=== PATIENT | female | born 1995 ===

== ENCOUNTER 2016-12-06 07:39 | Emergency (ER) | payer OTHER ==
[2016-12-06 08:11] VITALS: BMI 21.9
--- NOTE | 2016-12-06 08:53 | ED PDOC ---
Arrival/HPI - General Chief Complaint: Abnormal Skin Integrity Time Seen by Provider: 12/06/16 08:13 Historian: Patient - History of Present Illness Narrative History of Present Illness (Text): 12/06/16 08:17 A 21 year old female, whose past medical history includes asthma, presents to the emergency department with multiple complaints. Patient complains of pain to the left shoulder radiating up the left neck which developed 4 days ago. She notes yesterday at the site of the pain she developed a rash which is itchy and painful. Patient denies any trauma or use of new products, such as perfume, creams, soap, etc. Patient also complains of lower abdominal pain that began yesterday. Pain is sharp in nature and associated with nausea. She denies any fever, vomiting, diarrhea, urinary symptoms, vaginal bleeding, recent travel, recent weight lose , family history of cancer or any other complaints at this time. PMD: None Past Medical History - Provider Review Nursing Documentation Reviewed: Yes - Psychiatric Hx Substance Use: No Family/Social History - Physician Review Nursing Documentation Reviewed: Yes Family/Social History: Unknown Family HX Smoking Status: Never Smoked Hx Alcohol Use: Yes Frequency of alcohol use: Socially Hx Substance Use: No Allergies/Home Meds Allergies/Adverse Reactions: Allergies No Known Allergies Allergy (Verified 12/06/16 08:10) Review of Systems - Physician Review All systems were reviewed & negative as marked: Yes - Review of Systems Constitutional: absent: Fevers Cardiovascular: absent: Chest Pain Gastrointestinal: Abdominal Pain, Nausea. absent: Diarrhea, Vomiting Genitourinary Female: absent: Dysuria, Frequency, Hematuria, Urine Output Changes, Vaginal Bleeding Musculoskeletal: Neck Pain, Other (left shoulder pain) Skin: Rash Physical Exam Vital Signs Reviewed: Yes Vital Signs Temp Pulse Resp BP Pulse Ox 12/06/16 11:45 98 F 64 18 110/67 98 12/06/16 10:00 97.9 F 60 16 101/66 99 12/06/16 08:04 98.4 F 63 18 108/64 98 Temperature: Afebrile Blood Pressure: Normal Pulse: Regular Respiratory Rate: Normal Appearance: Positive for: Well-Appearing, Non-Toxic, Comfortable Pain Distress: None Mental Status: Positive for: Alert and Oriented X 3 - Systems Exam Head: Present: Atraumatic, Normocephalic Pupils: Present: PERRL Extroacular Muscles: Present: EOMI Conjunctiva: Present: Normal Mouth: Present: Moist Mucous Membranes Neck: Present: Normal Range of Motion Respiratory/Chest: Present: Clear to Auscultation, Good Air Exchange. No: Respiratory Distress, Accessory Muscle Use Cardiovascular: Present: Regular Rate and Rhythm, Normal S1, S2. No: Murmurs Abdomen: Present: Tenderness (right suprapubic tenderness with palpation), Normal Bowel Sounds, Guarding. No: Distention, Peritoneal Signs, Rebound Upper Extremity: Present: Other (pain with movement of left arm). No: Cyanosis , Edema Lower Extremity: Present: Normal Inspection. No: Edema Neurological: Present: GCS=15, CN II-XII Intact, Speech Normal Skin: Present: Warm, Dry, Rashes (vesicular rash with surrounding erythema to the vesicules to the left arm, left upper chest and left neck; rash is tender with palpation), Normal Color Psychiatric: Present: Alert, Oriented x 3, Normal Insight, Normal Concentration Medical Decision Making ED Course and Treatment: 12/06/16 08:17 Impression: A 21 year old female with a rash and abdominal pain. Differential Diagnosis include but are not limited to: rash with pain secondary to shingles vs. allergic reaction vs. contact dermatitis; suprapubic pain rule out UTI vs. ovarian cyst Plan: -- Transvaginal Ultrasound -- Labs -- Urinalysis -- Toradol and Zofran -- Reassess and disposition Prior Visits: Notes and results from previous visits were reviewed. The patient last presented to the edemergency department on 11/18/15 for evaluation of oral mucosal pain and constipation. Progress Notes: 12/06/16 10:40 Preliminary ultrasound report shows a right ovarian cyst; no torsion. 12/06/16 12:29 Transvaginal Ultrasound: Creator : Latosha Sheridan V. COMPARISON: None available. FINDINGS: UTERUS: Measures anteverted measures 7.0 x 3.7 x 4.8 cm. Normal in size and appearance. No fibroid or other mass lesion seen. ENDOMETRIUM: Measures 3.3 mm in diameter. Unremarkable. CERVIX: No cervical abnormality identified. RIGHT OVARY: Measures 3.4 x 2.3 x 2.2 cm. No solid mass. Normal flow. Dominant follicular appearing right ovarian cysts noted - 1.0 x 1.5 x 1.2 cm LEFT OVARY: Nonvisualized. Prominent bowel gas here FREE FLUID: No significant free fluid noted. OTHER FINDINGS: None. IMPRESSION: Nonvisualized left ovary. Dominant right ovarian follicular cyst. No free fluid. Otherwise unremarkable 12/06/16 12:30 Rash is consistent with Shingles. No cellulitis. She was treated with Azyclovir. Patient also received an ultrasound which noted a ovarian cyst. On reevaluation patient felt better and no longer had pain. Abdomen is soft and not Tender. Pelvic exam performed by me with RN Lissy as fabric pattern grader. No external vesicles or rash. No discharge. No adnexal tenderness or mass. No CMT. Cervical Os closed. On reevaluation, the patient feels better and is in no acute distress. I have discussed the results and plan with the patient, who expresses understand. Patient in agreement with the plan to be discharged home. Patient is stable for discharge. Patient instructed to follow up with physician/clinic in 1-2 days or return to the emergency room if symptoms persist or new concerning symptoms arise. - Lab Interpretations Lab Results: 12/06/16 09:05 12/06/16 09:05 Lab Results 12/06/16 10:24: Urine Color Yellow, Urine Appearance Clear, Urine pH 6.0, Ur Specific [place] 1.015, Urine Protein Negative, Urine Glucose (UA) Negative, Urine Ketones Negative, Urine Blood Trace-intact H, Urine Nitrate Negative, Urine Bilirubin Negative, Urine Urobilinogen 0.2, Ur Leukocyte Esterase Negative , Urine RBC 0 - 2, Urine WBC Negative, Ur Epithelial Cells 0 - 2, Urine Bacteria Trace 12/06/16 09:05: Sodium 138, Potassium 3.9, Chloride 105, Carbon Dioxide 25, Anion Gap 12, BUN 11, Creatinine 0.7, Est GFR ( Amer) > 60, Est GFR (Non- Af Amer) > 60, Random Glucose 85, Calcium 8.6, Total Bilirubin 0.7, AST 20, ALT 26, Alkaline Phosphatase 52, Total Protein 6.7, Albumin 3.6, Globulin 3.0, Albumin/Globulin Ratio 1.2 12/06/16 09:05: WBC 4.8, RBC 3.92, Hgb 11.6 L, Hct 35.7 L, MCV 91.1, MCH 29.6, MCHC 32.5, RDW 13.1, Plt Count 198, MPV 10.8, Gran % 48.9 L, Lymph % (Auto) 37.5 H, [place] % (Auto) 9.0 H, Eos % (Auto) 4.4, Baso % (Auto) 0.2, Gran # 2.35, Lymph # 1.8, [place] # 0.4, Eos # 0.2, Baso # 0.01 I have reviewed the lab results: Yes - RAD Interpretation Radiology Orders: 12/06/16 08:45 TRANSVAGINAL [US] Stat - Medication Orders Current Medication Orders: Discontinued Medications Acyclovir (Zovirax) 800 mg PO STAT STA PRN Reason: Protocol Stop: 12/06/16 11:16 Last Admin: 12/06/16 11:21 Dose: 800 mg Ketorolac Tromethamine (Toradol) 30 mg IVP STAT STA Stop: 12/06/16 08:43 Last Admin: 12/06/16 09:00 Dose: 30 mg Ondansetron HCl (Zofran Inj) 4 mg IVP STAT STA Stop: 12/06/16 08:43 Last Admin: 12/06/16 09:00 Dose: 4 mg - Scribe Statement The provider has reviewed the documentation as recorded by the Ian Cedeno Provider Scribe Attestation: All medical record entries made by the Ian were at my direction and personally dictated by me. I have reviewed the chart and agree that the record accurately reflects my personal performance of the history, physical exam, medical decision making, and the department course for this patient. I have also personally directed, reviewed, and agree with the discharge instructions and disposition. Disposition/Present on Arrival - Present on Arrival Any Indicators Present on Arrival: No History of DVT/PE: No History of Uncontrolled Diabetes: No Urinary Catheter: No History of Decub. Ulcer: No History Surgical Site Infection Following: None - Disposition Have Diagnosis and Disposition been Completed?: Yes Diagnosis: Shingles, Ovarian cyst Disposition: HOME/ ROUTINE Disposition Time: 12:30 Patient Plan: Discharge Condition: IMPROVED Discharge Instructions (ExitCare): Ovarian Cyst (ED), Shingles (ED) Additional Instructions: Ms Rojo, thank you for letting us take care of you today. Your provider was Dr. Shultz. You were treated for Shingles, Ovarian Cyst. The emergency medical care you received today was directed at your acute symptoms. If you were prescribed any medication, please fill it and take as directed. It may take several days for your symptoms to resolve. Return to the Emergency Department if your symptoms worsen, do not improve, or if you have any other problems. Please contact your doctor or call one of the physicians/clinics you have been referred to that are listed on the Patient Visit Information form that is included in your discharge packet. Bring any paperwork you were given at discharge with you along with any medications you are taking to your follow up visit. Our treatment cannot replace ongoing medical care by a primary care provider (PCP) outside of the emergency department. Thank you for allowing the [facility] team to be part of your care today. If you had an X-Ray or CT scan: A Radiologist will review the ED reading if any change in treatment is needed we will contact you. If you had a blood, urine, or wound culture: It will take several days for the results, if any change in treatment is needed we will contact you. If you had an STI test: It will take 48 hours for the results. Please call after 1 week if you have not heard back. Prescriptions: Acyclovir [Zovirax] 800 mg PO 5XD #35 tablet Ibuprofen [Motrin] 600 mg PO Q6 PRN #30 tab PRN Reason: Pain, Moderate (4-7) Referrals: [facility] Rose, [Primary Care Provider] - Follow up with primary Forms: [employer] ([employer]), WORK NOTE
[2016-12-06 09:06] LABS: ADD MANUAL DIFF? NO
[2016-12-06 09:16] LABS: BASO # 0.01 K/mm3 (0.0-2.0); BASO % 0.2 % (0.0-3.0); EOS # 0.2 (0.0-0.7); EOS % 4.4 % (1.5-5.0); GRAN # 2.35 (1.4-6.5); GRAN % 48.9 % (50.0-68.0); HEMATOCRIT 35.7 % (36.0-48.0); LYMPH # 1.8 (1.2-3.4); LYMPH % 37.5 % (22.0-35.0); MEAN CELL VOLUME 91.1 fL (80.0-105.0); MEAN CORPUSCULAR HEMOGLOBIN 29.6 pg (25.0-35.0); MEAN CORPUSCULAR HGB CONC 32.5 g/dl (31.0-37.0); MEAN PLATELET VOLUME 10.8 fl (7.0-11.0); MONO # 0.4 (0.1-0.6); PLATELET COUNT 198 10^3/uL (120.0-450.0); RED CELL DISTRIBUTION WIDTH 13.1 % (11.5-14.5); WHITE BLOOD COUNT 4.8 10^3/ul (4.5-11.0)
[2016-12-06 09:24] LABS: ALB/GLOB RATIO 1.2 (1.1-1.8); ALKALINE PHOSPHATASE 52 U/L (38-133); ALT/SGPT 26 U/L (7-56); AST/SGOT 20 U/L (15-39); BILIRUBIN,TOTAL 0.7 mg/dL (0.2-1.3); BLOOD UREA NITROGEN 11 mg/dL (7-21); CALCIUM 8.6 mg/dL (8.4-10.5); CARBON DIOXIDE 25 mmol/L (21-33); CHLORIDE 105 mmol/L (98-107); GFR AFRICAN-AMERICAN > 60; GLUCOSE,RANDOM 85 mg/dL (70-110); POTASSIUM 3.9 mmol/L (3.6-5.0); SODIUM 138 mmol/L (132-148); TOTAL PROTEIN 6.7 g/dL (5.8-8.3)
[2016-12-06 10:36] LABS: URINE BILIRUBIN NEGATIVE (NEGATIVE); URINE BLOOD TRACE-INTACT (NEGATIVE); URINE GLUCOSE (UA) NEGATIVE (NEGATIVE); URINE KETONE NEGATIVE (NEGATIVE); URINE LEUKOCYTE ESTERASE NEGATIVE Leu/uL (NEGATIVE); URINE PROTEIN NEGATIVE mg/dL (<30 mg/dL); URINE UROBILINOGEN 0.2 E.U./dL (<1 E.U./dL)
[2016-12-06 10:37] LABS: URINE APPEARANCE CLEAR (CLEAR); URINE COLOR YELLOW (YELLOW)
[2016-12-06 11:06] LABS: URINE BACTERIA TRACE (NEG); URINE EPITHELIAL CELLS 0 - 2 /hpf (0-5); URINE RBC 0 - 2 /hpf (0-2); URINE WBC NEGATIVE /hpf (0-6)
--- NOTE | 2016-12-06 12:26 | US ---
HISTORY: RLQ pelvic r/o ovarian torsion/cyst COMPARISON: None available. TECHNIQUE: Transvaginal technique was utilized. FINDINGS: UTERUS: Measures anteverted measures 7.0 x 3.7 x 4.8 cm. Normal in size and appearance. No fibroid or other mass lesion seen. ENDOMETRIUM: Measures 3.3 mm in diameter. Unremarkable. CERVIX: No cervical abnormality identified. RIGHT OVARY: Measures 3.4 x 2.3 x 2.2 cm. No solid mass. Normal flow. Dominant follicular appearing right ovarian cysts noted - 1.0 x 1.5 x 1.2 cm LEFT OVARY: Nonvisualized. Prominent bowel gas here FREE FLUID: No significant free fluid noted. OTHER FINDINGS: None. IMPRESSION: Nonvisualized left ovary. Dominant right ovarian follicular cyst. No free fluid. Otherwise unremarkable
[2016-12-06 12:36] VITALS: BP 110/67; PULSE 64; RESP 18; TEMP 98; O2SAT 98
== END 2016-12-06 11:30 | disposition home or self-care (01) ==
LOC: ED 07:39
DX: B02.9 Zoster without complications (principal); N83.201 Unspecified ovarian cyst, right side
CPT/HCPCS: 76830; 80053; 81001; 85025; 87086; 96374; 96375; 99283; J1885; J2405

== ENCOUNTER 2016-12-08 21:53 | Emergency (ER) | payer OTHER ==
[2016-12-08 23:14] VITALS: RESP 18; TEMP 98; O2SAT 100
[2016-12-08 23:15] VITALS: BMI 21.4
[2016-12-08] MEDS ORDERED: Morphine 4 mg/ml ISec IM STA (23:21)
--- NOTE | 2016-12-08 23:38 | ED PDOC ---
Arrival/HPI - General Chief Complaint: Abnormal Skin Integrity Time Seen by Provider: 12/08/16 23:21 Historian: Patient - History of Present Illness Narrative History of Present Illness (Text): 12/08/16 23:39 A 21 year old female, whose past medical history includes shingles, presents to the emergency department complaining of worsening shingle symptoms. Patient came to emergency department 3 days ago and was given antibiotics. Patient reports worsening pain and spreading of rash. Patient denies headache, fever, vomiting, vision changes or any other complaints at this time. Symptom Onset: Sudden Symptom Course: Unchanged Activities at Onset: Rest Context: Home Past Medical History - Provider Review Nursing Documentation Reviewed: Yes - Psychiatric Hx Substance Use: No - Anesthesia Hx Anesthesia: No Family/Social History - Physician Review Nursing Documentation Reviewed: Yes Family/Social History: No Known Family HX Smoking Status: Never Smoked Hx Alcohol Use: Yes Hx Substance Use: No Allergies/Home Meds Allergies/Adverse Reactions: Allergies No Known Allergies Allergy (Verified 12/08/16 23:15) Review of Systems - Physician Review All systems were reviewed & negative as marked: Yes - Review of Systems Constitutional: absent: Fevers Eyes: absent: Vision Changes Gastrointestinal: absent: Vomiting Skin: Rash Neurological: absent: Headache Physical Exam Vital Signs Reviewed: Yes Vital Signs Temp Pulse Resp BP Pulse Ox 12/08/16 23:12 98.0 F 72 18 117/79 100 Temperature: Afebrile Blood Pressure: Normal Pulse: Regular Respiratory Rate: Normal Appearance: Positive for: Well-Appearing, Non-Toxic, Comfortable Pain Distress: None Mental Status: Positive for: Alert and Oriented X 3 - Systems Exam Head: Present: Atraumatic, Normocephalic Pupils: Present: PERRL Extroacular Muscles: Present: EOMI Conjunctiva: Present: Normal Mouth: Present: Moist Mucous Membranes Neck: Present: Normal Range of Motion Respiratory/Chest: Present: Clear to Auscultation, Good Air Exchange. No: Respiratory Distress, Accessory Muscle Use Cardiovascular: Present: Regular Rate and Rhythm, Normal S1, S2. No: Murmurs Abdomen: Present: Normal Bowel Sounds. No: Tenderness, Distention, Peritoneal Signs Back: Present: Normal Inspection Upper Extremity: Present: Normal Inspection. No: Cyanosis, Edema Lower Extremity: Present: Normal Inspection. No: Edema Neurological: Present: GCS=15, CN II-XII Intact, Speech Normal Skin: Present: Rashes (vesicular to L upper chest), Other (scattered lesions on L side of neck) Psychiatric: Present: Alert, Oriented x 3, Normal Insight, Normal Concentration Medical Decision Making - Medication Orders Current Medication Orders: Discontinued Medications Morphine Sulfate (Morphine) 4 mg IM STAT STA Stop: 12/08/16 23:22 - Scribe Statement The provider has reviewed the documentation as recorded by the Ian Diallo Provider Scribe Attestation: All medical record entries made by the Scribe were at my direction and personally dictated by me. I have reviewed the chart and agree that the record accurately reflects my personal performance of the history, physical exam, medical decision making, and the department course for this patient. I have also personally directed, reviewed, and agree with the discharge instructions and disposition. Disposition/Present on Arrival - Present on Arrival History of DVT/PE: No History of Uncontrolled Diabetes: No Urinary Catheter: No History of Decub. Ulcer: No History Surgical Site Infection Following: None - Disposition Diagnosis: Herpes zoster Disposition: HOME/ ROUTINE Disposition Time: 23:21 Condition: STABLE Discharge Instructions (ExitCare): Shingles (ED) Additional Instructions: Please follow up with your doctor. Return to the ER for any worsening symptoms, fever, if the rash is spreading to the other side of your body or to other parts of your body, or for any other concerns. Prescriptions: Hydrocodone/Acetaminophen [[place] 325 mg-5 mg] 1 tab PO Q6H PRN #12 tab PRN Reason: Pain, Severe (8-10) Referrals: [facility] at [facility] [place] [Outside] - Follow up with primary
[2016-12-09 00:02] VITALS: BP 121/73; PULSE 62
== END 2016-12-09 00:02 | disposition home or self-care (01) ==
LOC: ED 21:53
DX: B02.9 Zoster without complications (principal)
CPT/HCPCS: 96372; 99284; J2270

== ENCOUNTER 2016-12-15 14:15 | Emergency (ER) | payer OTHER ==
[2016-12-15 14:15] VITALS: BMI 21.4
[2016-12-15 14:26] VITALS: TEMP 98.7
--- NOTE | 2016-12-15 14:47 | ED PDOC ---
Arrival/HPI - General Chief Complaint: Abnormal Skin Integrity Time Seen by Provider: 12/15/16 14:42 - History of Present Illness Narrative History of Present Illness (Text): 21F complaining of itching around her shingles rash. The rash first started on the 12th or 13th and I saw the pt on the 16th. her rash now is improved and lesions are mostly crusted over, pain is better. now she complains of itching. no fever, n/v, headache, visual changes. Past Medical History - Psychiatric Hx Substance Use: No - Anesthesia Hx Anesthesia: No Family/Social History Family/Social History: Other (nc) Smoking Status: Never Smoked Hx Alcohol Use: Yes Hx Substance Use: No Allergies/Home Meds Allergies/Adverse Reactions: Allergies No Known Allergies Allergy (Verified 12/08/16 23:15) Review of Systems - Review of Systems Constitutional: absent: Fevers Eyes: absent: Vision Changes, Photophobia Respiratory: absent: SOB Cardiovascular: absent: Chest Pain Skin: Rash Neurological: absent: Headache, Dizziness Physical Exam Vital Signs Reviewed: Yes Vital Signs Temp Pulse Resp BP Pulse Ox 12/15/16 14:25 98.7 F 78 18 121/74 100 Appearance: Positive for: Well-Appearing, Non-Toxic, Comfortable Pain Distress: None Mental Status: Positive for: Alert and Oriented X 3 - Systems Exam Pupils: Present: PERRL Extroacular Muscles: Present: EOMI Mouth: Present: Moist Mucous Membranes Neck: Present: Normal Range of Motion Respiratory/Chest: No: Accessory Muscle Use Cardiovascular: Present: Regular Rate and Rhythm Neurological: Present: GCS=15, Motor Func Grossly Intact, Normal Sensory Function Skin: Present: Warm, Dry, Other (previous vesicular rash on the left upper chest wall is crusted over. no signs of cellultis. ) Psychiatric: Present: Alert, Oriented x 3 Medical Decision Making ED Course and Treatment: the rash looks much better than previous visit. pt appears well no distress. will rx benadryl cream. Disposition/Present on Arrival - Present on Arrival Any Indicators Present on Arrival: No History of DVT/PE: No History of Uncontrolled Diabetes: No Urinary Catheter: No History of Decub. Ulcer: No History Surgical Site Infection Following: None - Disposition Have Diagnosis and Disposition been Completed?: Yes Diagnosis: Herpes zoster Disposition: HOME/ ROUTINE Disposition Time: 14:56 Condition: GOOD Discharge Instructions (ExitCare): Shingles (ED) Additional Instructions: Please follow up with a primary doctor. Return to the ER for any worsening symptoms or for any other concerns. Prescriptions: Diphenhydramine HCl/Zinc Acet [Benadryl Itch Stopping Crm] 28.3 gm TP TID PRN # 1 cream..g. PRN Reason: Itching / Pruritus Referrals: [facility] at [facility] [place]Outside] - Follow up with primary
[2016-12-15 14:58] VITALS: BP 124/70; PULSE 76; RESP 17; O2SAT 98
== END 2016-12-15 14:58 | disposition home or self-care (01) ==
LOC: ED 14:15
DX: B02.9 Zoster without complications (principal)

== ENCOUNTER 2017-11-12 07:15 | Emergency (ER) | payer OTHER ==
[2017-11-12 08:11] VITALS: BMI 19.3
--- NOTE | 2017-11-12 08:46 | ED PDOC ---
Arrival/HPI - General Chief Complaint: Lower Extremity Problem/Injury Time Seen by Provider: 11/12/17 08:45 Historian: Patient - History of Present Illness Narrative History of Present Illness (Text): 11/12/17 08:56 22 year old female, whose PMH includes asthma, who presents to the emergency department complaining of bilateral leg pain since last night. Patient denies fever, dysuria, headache, shortness of breath, chest pain, or other complaints. Time/Duration: 24 hours Symptom Onset: Sudden Symptom Course: Unchanged Activities at Onset: Rest Context: Home Past Medical History - Provider Review Nursing Documentation Reviewed: Yes - Pulmonary Hx Respiratory Disorders: Yes Hx Asthma: Yes - Psychiatric Hx Substance Use: No - Anesthesia Hx Anesthesia: No Family/Social History - Physician Review Nursing Documentation Reviewed: Yes Family/Social History: Unknown Family HX Smoking Status: Never Smoked Hx Alcohol Use: Yes Hx Substance Use: No Allergies/Home Meds Allergies/Adverse Reactions: Allergies No Known Allergies Allergy (Verified 11/12/17 08:08) Review of Systems - Physician Review All systems were reviewed & negative as marked: Yes - Review of Systems Constitutional: absent: Fevers Respiratory: absent: SOB Cardiovascular: absent: Chest Pain Musculoskeletal: Other (bilateral leg pain) Physical Exam Vital Signs Reviewed: Yes Vital Signs Temp Pulse Resp BP Pulse Ox 11/12/17 08:10 97.9 F 64 17 127/71 99 Temperature: Afebrile Blood Pressure: Normal Pulse: Regular Respiratory Rate: Normal Appearance: Positive for: Well-Appearing, Non-Toxic, Comfortable Pain Distress: None Mental Status: Positive for: Alert and Oriented X 3 - Systems Exam Head: Present: Atraumatic, Normocephalic Pupils: Present: PERRL Extroacular Muscles: Present: EOMI Conjunctiva: Present: Normal Respiratory/Chest: Present: Clear to Auscultation, Good Air Exchange. No: Respiratory Distress, Accessory Muscle Use, Wheezes, Rales, Rhonchi Cardiovascular: Present: Regular Rate and Rhythm, Normal S1, S2. No: Murmurs Lower Extremity: Present: Normal Inspection, NORMAL PULSES, Normal ROM, Neurovascularly Intact, Capillary Refill < 2 s. No: Edema, CALF TENDERNESS, Cyanosis, Tenderness, Swelling, Erythema, Deformity Neurological: Present: GCS=15, CN II-XII Intact, Speech Normal Skin: Present: Warm, Dry, Normal Color. No: Rashes Psychiatric: Present: Alert, Oriented x 3, Normal Insight, Normal Concentration Medical Decision Making ED Course and Treatment: 11/12/17 Impression: 22 year old female with unremarkable physical exam, complaining of bilateral leg pain since last night. Plan: -- Urinalysis -- Labs -- Reassess and disposition Progress Notes: - Lab Interpretations Lab Results: 11/12/17 09:12 11/12/17 09:12 Lab Results 11/12/17 09:12: Urine HCG, Qual Negative 11/12/17 09:12: Sodium 142, Potassium 4.0, Chloride 105, Carbon Dioxide 24, Anion Gap 16, BUN 15, Creatinine 0.6 L, Est GFR ( Amer) > 60, Est GFR ( Non-Af Amer) > 60, Random Glucose 83, Calcium 8.9, Total Bilirubin 1.2, AST 18, ALT 20, Alkaline Phosphatase 49, Total Creatine Kinase 54, Total Protein 7.6, Albumin 4.3, Globulin 3.3, Albumin/Globulin Ratio 1.3 11/12/17 09:12: Urine Color Yellow, Urine Appearance Clear, Urine pH 6.0, Ur Specific [place] 1.025, Urine Protein Trace H, Urine Glucose (UA) Negative, Urine Ketones Negative, Urine Blood Negative, Urine Nitrate Negative, Urine Bilirubin Negative, Urine Urobilinogen 0.2, Ur Leukocyte Esterase Trace H, Urine RBC 0 - 2, Urine WBC 2 - 5, Ur Epithelial Cells 4 - 5, Urine Bacteria Mod 11/12/17 09:12: WBC 5.9 D, RBC 4.35, Hgb 12.9, Hct 38.7, MCV 89.0, MCH 29.7, MCHC 33.3, RDW 12.5, Plt Count 267, MPV 10.9, Gran % 61.6, Lymph % (Auto) 30.5, [place] % (Auto) 5.8, Eos % (Auto) 1.9, Baso % (Auto) 0.2, Gran # 3.62, Lymph # ( Auto) 1.8, [place] # (Auto) 0.3, Eos # (Auto) 0.1, Baso # (Auto) 0.01 I have reviewed the lab results: Yes - Medication Orders Current Medication Orders: Discontinued Medications Acetaminophen (Tylenol 325mg Tab) 650 mg PO STAT STA Stop: 11/12/17 09:02 Last Admin: 11/12/17 09:18 Dose: 650 mg MAR Pain/Vitals Document 11/12/17 09:18 [email or web address] (Rec: 11/12/17 09:18 [email or web address] [id number]) Pain Reassessment Is This A Pain ReAssessment? No Sleep Is patient sleeping during reassessment? No Presence of Pain Presence of Pain Yes Pain Scale Used Pain Scale Used Numeric Location Left, Right or Bilateral Right Pain Location Body Site leg Description Constant Intensity 7 Scale Used Numeric Pain Behavior Facial Grimacing Aggravating Factors Changing Position Alleviating Factors Medication Sodium Chloride (Sodium Chloride 0.9%) 1,000 mls @ 999 mls/hr IV .Q1H1M STA Stop: 11/12/17 09:59 Last Admin: 11/12/17 09:17 Dose: 999 mls/hr eMAR Start Stop Document 11/12/17 09:17 [email or web address] (Rec: 11/12/17 09:18 [email or web address] [id number]) Intravenous Solution Start Date 11/12/17 Start Time 09:17 End Date 11/12/17 - Scribe Statement The provider has reviewed the documentation as recorded by the Juan Calrosibe Jenn Nava Provider Scribe Attestation: All medical record entries made by the Scribe were at my direction and personally dictated by me. I have reviewed the chart and agree that the record accurately reflects my personal performance of the history, physical exam, medical decision making, and the department course for this patient. I have also personally directed, reviewed, and agree with the discharge instructions and disposition. Disposition/Present on Arrival - Present on Arrival Any Indicators Present on Arrival: Yes History of DVT/PE: No History of Uncontrolled Diabetes: No Urinary Catheter: No History of Decub. Ulcer: No History Surgical Site Infection Following: None - Disposition Have Diagnosis and Disposition been Completed?: Yes Diagnosis: Leg pain Disposition: HOME/ ROUTINE Disposition Time: 10:41 Patient Problems: Current Active Problems Problem Status Onset Leg pain Acute Condition: GOOD Prescriptions: Cyclobenzaprine [Cyclobenzaprine HCl] 10 mg PO Q8 5 Days #15 tab Ibuprofen [Motrin Ib] 600 mg PO Q6 #20 tablet Forms: [employer] ([place])
[2017-11-12] MEDS ORDERED: Sodium Chloride 0.9% 1,000 ML IV STA (08:59)
[2017-11-12 09:25] LABS: BASO # 0.01 K/mm3 (0.0-2.0); BASO % 0.2 % (0.0-3.0); EOS # 0.1 (0.0-0.7); EOS % 1.9 % (1.5-5.0); GRAN # 3.62 (1.4-6.5); GRAN % 61.6 % (50.0-68.0); HEMOGLOBIN 12.9 g/dL (12.0-16.0); LYMPH # 1.8 (1.2-3.4); LYMPH % 30.5 % (22.0-35.0); MEAN CORPUSCULAR HEMOGLOBIN 29.7 pg (25.0-35.0); MEAN CORPUSCULAR HGB CONC 33.3 g/dl (31.0-37.0); MEAN PLATELET VOLUME 10.9 fl (7.0-11.0); MONO # 0.3 (0.1-0.6); MONO % 5.8 % (1.0-6.0); RBC 4.35 10^6/uL (3.5-6.1); RED CELL DISTRIBUTION WIDTH 12.5 % (11.5-14.5); WHITE BLOOD COUNT 5.9 10^3/ul (4.5-11.0)
[2017-11-12 09:33] LABS: URINE BILIRUBIN NEGATIVE (NEGATIVE); URINE BLOOD NEGATIVE (NEGATIVE); URINE GLUCOSE (UA) NEGATIVE (NEGATIVE); URINE LEUKOCYTE ESTERASE TRACE Leu/uL (NEGATIVE); URINE PROTEIN TRACE mg/dL (<30 mg/dL); URINE UROBILINOGEN 0.2 E.U./dL (<1 E.U./dL)
[2017-11-12 09:34] LABS: URINE APPEARANCE CLEAR (CLEAR); URINE COLOR YELLOW (YELLOW)
[2017-11-12 09:36] LABS: URINE RBC 0 - 2 /hpf (0-2)
[2017-11-12 09:37] LABS: URINE BACTERIA MOD (NEG)
[2017-11-12 09:38] LABS: ALB/GLOB RATIO 1.3 (1.1-1.8); ALBUMIN 4.3 g/dL (3.0-4.8); ALT/SGPT 20 U/L (7-56); AST/SGOT 18 U/L (14-36); BLOOD UREA NITROGEN 15 mg/dL (7-21); CALCIUM 8.9 mg/dL (8.4-10.5); GFR AFRICAN-AMERICAN > 60; GFR NON-AFRICAN AMERICAN > 60
[2017-11-12 10:53] VITALS: BP 102/47; PULSE 59; RESP 18; TEMP 98; O2SAT 100
== END 2017-11-12 10:53 | disposition home or self-care (01) ==
LOC: ED 07:15
DX: M79.605 Pain in left leg (principal); M79.604 Pain in right leg
CPT/HCPCS: 80053; 81001; 82550; 84703; 85025; 87086; 99283; J7040

== ENCOUNTER 2018-07-07 10:42 | Emergency (ER) | payer OTHER ==
[2018-07-07 10:45] VITALS: BMI 23.1
[2018-07-07 10:47] VITALS: RESP 18; TEMP 97.9
--- NOTE | 2018-07-07 11:06 | ED PDOC ---
Arrival/HPI - General Historian: Patient - History of Present Illness Narrative History of Present Illness (Text): 07/07/18 10:50 23 y/o female, no significant pmh, nkda, c/o synope episode happened about 1 hour ago. Pt. stated that she was cleaning the ear for her roommate's suture wound, spontaneously feel dizziness and went blank, syncope while another person catching her, woke up and unable to recall, no tongue fasciculation, no extremities tremors, no urinary or bowel incontinence or retention, no rash, no other medical or psychological complaints. Past Medical History - Provider Review Nursing Documentation Reviewed: Yes - Pulmonary Hx Respiratory Disorders: Yes Hx Asthma: Yes - Psychiatric Hx Substance Use: No - Anesthesia Hx Anesthesia: No Family/Social History - Physician Review Nursing Documentation Reviewed: Yes Family/Social History: Unknown Family HX Smoking Status: Never Smoked Hx Alcohol Use: Yes Hx Substance Use: No Allergies/Home Meds Allergies/Adverse Reactions: Allergies No Known Allergies Allergy (Verified 07/07/18 10:51) Review of Systems - Review of Systems Constitutional: absent: Fatigue, Fevers Eyes: absent: Vision Changes ENT: absent: Hearing Changes Respiratory: absent: SOB, Cough Cardiovascular: absent: Chest Pain Gastrointestinal: absent: Abdominal Pain, Nausea, Vomiting Skin: absent: Rash, Pruritis Neurological: Dizziness. absent: Headache, Focal Weakness, Gait Changes, Speech Changes Psychiatric: absent: Anxiety, Depression, Suicidal Ideation Physical Exam Vital Signs Reviewed: Yes Vital Signs Temp Pulse Resp BP Pulse Ox 07/07/18 10:45 97.9 F 54 L 18 113/53 L 98 Temperature: Afebrile Blood Pressure: Hypotensive Pulse: Bradycardic Respiratory Rate: Normal Appearance: Positive for: Well-Appearing, Non-Toxic Pain Distress: None Mental Status: Positive for: Alert and Oriented X 3 Finger Stick Blood Glucose: 90 - Systems Exam Head: Present: Atraumatic, Normocephalic Pupils: Present: PERRL Extroacular Muscles: Present: EOMI Conjunctiva: Present: Normal Ears: Present: NORMAL TM, Normal Canal. No: Erythema Mouth: Present: Moist Mucous Membranes Pharnyx: No: ERYTHEMA, EXUDATE, TONSILS ENLARGED Nose (External): Present: Atraumatic. No: Abrasion, Contusion, Laceration Nose (Internal): Present: Normal Inspection, No Active Bleeding. No: Rhinorrhea, Septal Deviation, Septal Hematoma, Epistaxis Neck: Present: Normal Range of Motion Respiratory/Chest: Present: Clear to Auscultation, Good Air Exchange. No: Respiratory Distress, Accessory Muscle Use, Wheezes, Decreased Breath Sounds, Rales, Retracting, Rhonchi Cardiovascular: Present: Regular Rate and Rhythm, Normal S1, S2. No: Murmurs Abdomen: No: Tenderness, Distention, Peritoneal Signs, Rebound, Guarding Back: Present: Normal Inspection. No: CVA Tenderness, Midline Tenderness, Paraspinal Tenderness, Pain with Leg Raise Upper Extremity: Present: Normal Inspection, Normal ROM, NORMAL PULSES, Neurov ascularly Intact, Capillary Refill < 2s, Norm 2-Pt Discrimination. No: Cyanosis, Edema, Tenderness, Swelling, Deformity Lower Extremity: Present: Normal Inspection, NORMAL PULSES, Normal ROM, Neurovascularly Intact, Capillary Refill < 2 s. No: Edema, CALF TENDERNESS, Tenderness, Swelling, Deformity Neurological: Present: GCS=15, CN II-XII Intact, Speech Normal, Motor Func Grossly Intact, Gait Normal, Memory Normal Skin: Present: Warm, Dry, Normal Color. No: Rashes Psychiatric: Present: Alert, Oriented x 3, Normal Insight, Normal Concentration Medical Decision Making ED Course and Treatment: 07/07/18 11:14 Vasovagal vs. ICH vs. Hypotension vs. Dehydration vs. vs. cardiac arrythmia vs. UTI -Labs -EKG -CT head -Chest xray -IVF -Orthotatic v/s is negative: Stand 123/72 HR 64, Sit 110/67 HR 63, Supine 104/62 HR 66 -Observe and reassess 07/07/18 15:37 -Serum Hcg is negative -EKG: Sinus Bradycardia @ 56 BPM, no ST elevation or depression, no T wave inversion -CT head No acute intracranial abnormalities. No significant findings to account for the clinical presentation -Chest xray ER wet read: no active disease -Labs show no acute findings -Mg within normal limit -Trop within normal limit -Acetaminophen/salicylate acid: within normal limit -Alcohol within normal limit -UA show mild UTI -UDS show no acute findings -Orthotatic v/s is negative -PERC negative -HEART score is low -Pt. is asymptomatic, feels well, labs and radiology results discussed, request to be discharged home. -Discharge home with macrobid, stay hydrated, bed rest, follow up with your own pmd within 2 days, return to the ER for any new or worsening signs or symptoms. - RAD Interpretation Radiology Orders: CT head: Date of service: 07/07/2018 PROCEDURE: CT HEAD WITHOUT CONTRAST. HISTORY: syncope COMPARISON: None available. TECHNIQUE: Axial computed tomography images were obtained through the head/brain without intravenous contrast. Supplemental Coronal and Sagittal projections created and reviewed. Radiation dose: Total exam DLP = 818.39 mGy-cm. This CT exam was performed using one or more of the following dose reduction techniques: Automated exposure control, adjustment of the mA and/or kV according to patient size, and/or use of iterative reconstruction technique. FINDINGS: HEMORRHAGE: No intracranial hemorrhage. BRAIN: No mass effect or edema. No atrophy or chronic microvascular ischemic changes. VENTRICLES: Unremarkable. No hydrocephalus. CALVARIUM: Unremarkable. PARANASAL SINUSES: Unremarkable as visualized. No significant inflammatory changes. MASTOID AIR CELLS: Unremarkable as visualized. No inflammatory changes. OTHER FINDINGS: None. IMPRESSION: No acute intracranial abnormalities. No significant findings to account for the clinical presentation. Chest xray: Date of service: 07/07/2018 HISTORY: syncope COMPARISON: No prior. TECHNIQUE: Chest PA and lateral FINDINGS: LUNGS: No active pulmonary disease. PLEURA: No significant pleural effusion identified. No pneumothorax apparent. CARDIOVASCULAR: No aortic atherosclerotic calcification present. Normal cardiac size. No pulmonary vascular congestion. OSSEOUS STRUCTURES: No significant abnormalities. VISUALIZED UPPER ABDOMEN: Normal. OTHER FINDINGS: None. IMPRESSION: No active disease. Ferris Wheel Attendant: Radiologist - EKG Interpretation EKG Interpretation (Text): 07/07/18 14:28 -EKG: Sinus Bradycardia @ 56 BPM, no ST elevation or depression, no T wave inversion Interpreted by ED Physician: Yes Type: 12 lead EKG - PA / BATTALION CHIEF / Resident Statement /DO has reviewed & agrees with the documentation as recorded. Disposition/Present on Arrival - Present on Arrival Any Indicators Present on Arrival: No History of DVT/PE: No History of Uncontrolled Diabetes: No Urinary Catheter: No History of Decub. Ulcer: No History Surgical Site Infection Following: None - Disposition Have Diagnosis and Disposition been Completed?: Yes Diagnosis: Syncope, UTI (urinary tract infection) Disposition: HOME/ ROUTINE Disposition Time: 15:42 Patient Plan: Discharge Condition: IMPROVED Discharge Instructions (ExitCare): Syncope (ED), Asymptomatic Bacteriuria Additional Instructions: -Discharge home with macrobid, stay hydrated, bed rest, follow up with your own pmd and snow removal/plowing/neurologist within 2 days, no gym or sport until clear by pmd and specialist, get up bed slowly, return to the ER for any new or worsening signs or symptoms. Prescriptions: Nitrofurantoin Macrocrystals [Macrobid] 100 mg PO BID #14 cap Referrals: [facility] [Primary Care Provider] - Follow up with primary [facility] at [facility] [place] [Outside] - Follow up with primary Edgar Valladares MD [Staff Provider] - Follow up with primary Darrick Shaffer MD [Staff Provider] - Follow up with primary Forms: WORK NOTE
[2018-07-07] MEDS ORDERED: Sodium Chloride 0.9% 1,000 ML IV STA (11:09)
[2018-07-07 13:06] LABS: BASO # 0.01 K/mm3 (0.0-2.0); BASO % 0.2 % (0.0-3.0); EOS # 0.1 (0.0-0.7); EOS % 2.4 % (1.5-5.0); GRAN # 4.06 (1.4-6.5); GRAN % 70.3 % (50.0-68.0); HEMOGLOBIN 12.3 g/dL (12.0-16.0); LYMPH # 1.4 (1.2-3.4); LYMPH % 23.6 % (22.0-35.0); MEAN CELL VOLUME 91.3 fl (80.0-105.0); MEAN CORPUSCULAR HEMOGLOBIN 29.1 pg (25.0-35.0); MEAN CORPUSCULAR HGB CONC 31.9 g/dl (31.0-37.0); MEAN PLATELET VOLUME 11.7 fl (7.0-11.0); MONO # 0.2 (0.1-0.6); MONO % 3.5 % (1.0-6.0); RBC 4.23 10^6/uL (3.5-6.1); RED CELL DISTRIBUTION WIDTH 12.8 % (11.5-14.5); WHITE BLOOD COUNT 5.8 10^3/uL (4.5-11.0)
[2018-07-07 13:08] LABS: ACETAMINOPHEN < 10.0 ug/ml (10.0-20.0); SALICYLATE < 1 mg/dL (2.0-20.0)
[2018-07-07 13:14] LABS: ALB/GLOB RATIO 1.2 (1.1-1.8); ALBUMIN 4.4 g/dL (3.0-4.8); ALT/SGPT 21 U/L (7-56); AST/SGOT 24 U/L (14-36); BLOOD UREA NITROGEN 24 mg/dL (7-21); CALCIUM 9.3 mg/dL (8.4-10.5); GFR NON-AFRICAN AMERICAN > 60
[2018-07-07 13:35] LABS: TROPONIN I < 0.01 ng/mL
[2018-07-07] MEDS ORDERED: Sodium Chloride 0.9% 500 ML IV STA (14:19)
--- NOTE | 2018-07-07 15:05 | CT ---
Date of service: 07/07/2018 PROCEDURE: CT HEAD WITHOUT CONTRAST. HISTORY: syncope COMPARISON: None available. TECHNIQUE: Axial computed tomography images were obtained through the head/brain without intravenous contrast. Supplemental Coronal and Sagittal projections created and reviewed. Radiation dose: Total exam DLP = 818.39 mGy-cm. This CT exam was performed using one or more of the following dose reduction techniques: Automated exposure control, adjustment of the mA and/or kV according to patient size, and/or use of iterative reconstruction technique. FINDINGS: HEMORRHAGE: No intracranial hemorrhage. BRAIN: No mass effect or edema. No atrophy or chronic microvascular ischemic changes. VENTRICLES: Unremarkable. No hydrocephalus. CALVARIUM: Unremarkable. PARANASAL SINUSES: Unremarkable as visualized. No significant inflammatory changes. MASTOID AIR CELLS: Unremarkable as visualized. No inflammatory changes. OTHER FINDINGS: None. IMPRESSION: No acute intracranial abnormalities. No significant findings to account for the clinical presentation.
--- NOTE | 2018-07-07 15:06 | RAD ---
Date of service: 07/07/2018 HISTORY: syncope COMPARISON: No prior. TECHNIQUE: Chest PA and lateral FINDINGS: LUNGS: No active pulmonary disease. PLEURA: No significant pleural effusion identified. No pneumothorax apparent. CARDIOVASCULAR: No aortic atherosclerotic calcification present. Normal cardiac size. No pulmonary vascular congestion. OSSEOUS STRUCTURES: No significant abnormalities. VISUALIZED UPPER ABDOMEN: Normal. OTHER FINDINGS: None. IMPRESSION: No active disease. Concordant results with the preliminary interpretation rendered by the emergency department physician procedure.
[2018-07-07 15:14] LABS: PH,URINE 6.5 (4.7-8.0); URINE BILIRUBIN NEGATIVE (NEGATIVE); URINE BLOOD NEGATIVE (NEGATIVE); URINE GLUCOSE (UA) NEGATIVE (NEGATIVE); URINE LEUKOCYTE ESTERASE TRACE Leu/uL (NEGATIVE); URINE PROTEIN NEGATIVE mg/dL (<30 mg/dL); URINE UROBILINOGEN 0.2 E.U./dL (<1 E.U./dL)
[2018-07-07 15:15] LABS: URINE APPEARANCE SL CLOUDY (CLEAR); URINE COLOR YELLOW (YELLOW)
[2018-07-07 15:24] LABS: BARBITURATES, UR NEGATIVE (NEGATIVE); BENZODIAZEPINES, UR NEGATIVE (NEGATIVE); OPIATES, UR NEGATIVE (NEGATIVE); PHENCYCLIDINE, UR NEGATIVE (NEGATIVE)
[2018-07-07 15:26] LABS: URINE RBC 0 - 2 /hpf (0-2)
[2018-07-07 17:02] VITALS: BP 106/56; PULSE 88; O2SAT 100
--- NOTE | 2018-07-07 22:02 | CARD ---
APPROVED REPORT Date of service: 07/07/2018 EKG Measurement Heart [id number] <Conclusion> Sinus bradycardia Otherwise normal ECG
== END 2018-07-07 17:02 | disposition home or self-care (01) ==
LOC: ED 10:42
DX: N39.0 Urinary tract infection, site not specified (principal); R55 Syncope and collapse
CPT/HCPCS: 70450; 71046; 80053; 80320; 80324; 80329; 80345; 80346; 80349; 80353; 80358; 80361; 81001; 81025; 82550; 83735; 83992; 84484; 84702; 85025; 87086; 93005; 96360; 96361; 99285; J7030; J7040